=== PATIENT | male | born 1935 | race Caucasian/White ===

== ENCOUNTER → 2016-12-17 08:32 | Outpatient (CLI) | payer MEDICARE, BC ==
[2016-01-27 09:39] VITALS: BMI 31.0
[~2016-12-17 08:32] MED LIST: NIFEDIPINE ER60 MG PO; [UNRECOGNIZED DRUG - REMARK] PO
== END | disposition home or self-care (01) ==
LOC: D.MRI 08:30
DX: R19.09 Other intra-abdominal and pelvic swelling, mass and lump (principal)

== ENCOUNTER → 2018-09-01 14:31 | Outpatient (CLI) | payer MEDICARE, BC ==
[2016-01-27 09:39] VITALS: BMI 31.0
== END | disposition home or self-care (01) ==
LOC: D.NM 14:00
DX: R79.1 Abnormal coagulation profile (principal)

== ENCOUNTER → 2018-09-18 11:35 | Outpatient (CLI) | payer MEDICARE, BC ==
[2016-01-27 09:39] VITALS: BMI 31.0
== END | disposition home or self-care (01) ==
LOC: D.HCCARDIO 11:30
DX: R06.02 Shortness of breath (principal)

== ENCOUNTER 2018-11-01 11:43 | Outpatient (CLI) | payer MEDICARE, BC ==
[~2018-11-01] VITALS: Ht 181.6 cm; Wt 103.6 kg
--- NOTE | ~2018-11-01 | HEMODYNAMI ---
PATIENT:Burak WALLER MEDICAL RECORD: [id number] : 35 LOCATION:[facility] ADMISSION DATE: 11/01/18 Generatedon:11/01/201815:53 Patient name: Burak WALLER Patient #: [id number] SSN: : Date of study: 11/01/2018 Page: Of Hemodynamic Procedure Report Patient Data Patient Demographics Procedure consent was obtained First Name: Burak Gender: Male Last Name: SRIDHAR : 1935 Middle Initial: D Age: 82 year(s) Patient #: [id number] Race: Unknown Additional ID: [id number] Contact details [address]: [address] [place] [address] State: [place] City: [place] Zip code: [address] Past Medical History Allergies Allergen Reaction Date Comments Reported Sulfa drugs 11/01/2018 Admission Admission Data Admission Date: 11/01/2018 Admission Time: 11:43 Procedure Procedure Types Cath Procedure Diagnostic Procedure LHC LH w/Coronaries Sedation Charges Moderate Sedation up to 15 minutes PCI Procedure Coronary Stent Coronary Stent Initial Procedure Description Procedure Date Procedure Date: 11/01/2018 Procedure Start Time: 15:24 Procedure End Time: 15:49 Procedure Staff Name Function Luli Valentin RT Monitor Dennis Serrano MD Performing Physician Cori Flores RT Scrub Lindsey Vega RN Nurse Procedure Data Cath Procedure Fluoroscopy Diagnostic fluoroscopy Total fluoroscopy Time: 4.9 time: 4.9 min min Diagnostic fluoroscopy Total fluoroscopy dose: dose: 1077 mGy 1077 mGy Contrast Material Contrast Material Type Amount (ml) Isovue 300 79 Entry Location Entry Primary Successful Side Size Upsize Upsize Entry Closure Soto ccessful Closure Location (Fr) 1 (Fr) 2 (Fr) Remarks Device Remarks Radial Right 6 Fr Mechanical artery Short Compression Estimated blood loss: 5 ml Diagnostic catheters Device Type Used For End Catheter Placement DIAGNOSTIC Juancarlos 110cm Multi-vessel 5Fr catheter ([id number]) Angiography DIAGNOSTIC Hastings 110cm 5 Left Coronary Fr catheter (815023) Angiography Procedure Complications No complications Procedure Medications Medication Administration Route Dosage 0.9% NaCl I.V. 100 ml/hr Oxygen etCO2 Nasal cannula 2 l/min Lidocaine 2% added to field 20 Heparin Flush Bag added to field 2 bags (1000units/500ml NS) Radial Cocktail added to field 1 syringe (Verapomil 2mg/Nitro 400mcg/Heparin 1500units) Versed I.V. 2 mg Fentanyl I.V. 100 mcg Versed I.V. 2 mg Versed I.V. 2 mg Heparin Bolus I.V. 73433 units Plavix P.O. 600 mg Hemodynamics Rest Heart Rate: 65 (bpm) Pressure Samples Time Site Value (mmHg) Purpose Heart Use Rate(bpm) 15:27 LV 131/3,8 Snapshot 86 15:27 LV 142/-7,4 Pullback 93 15:27 AO 135/67(98) Pullback 93 Gradients Valve Time Site 1 Site 2 Mean SEP/DFP Peak To Heart Use (mmHg) (sec/min) Peak Rate (mmHg) (bpm) Aortic 15:27 LV AO 14 7 7 93 142/-7,4 135/67(98) Calculations Valve P-P Mean Valve Index Valve Source Name Gradient Area Flow (cm2) Aortic 7 14 7 14 Snapshots Pre Cath Intra NCS Post Cath Vital Signs Time Heart Resp SPO2 etCO2 NIBP (mmHg) Rhythm Pain Sedation Rate (ipm) (%) (mmHg) Status Level (bpm) 15:14:52 83 21 98 24.8 148/86(116) NSR 0 (11) 10(A) , No pain 15:19:21 84 21 98 23 155/86(102) NSR 0 (11) 10(A) , No pain 15:23:47 88 19 97 33 150/88(116) NSR 0 (11) 10(A) , No pain 15:28:17 87 17 98 31 126/78(101) NSR 0 (11) 10(A) , No pain 15:37:26 86 15 97 33.8 153/87(109) NSR 0 (11) 9(A) , No pain 15:41:50 86 16 98 30.1 145/79(109) NSR 0 (11) 9(A) , No pain 15:46:19 81 16 97 25.5 140/78(102) NSR 0 (11) 10(A) , No pain Medications Time Medication Route Dose Verified Delivered Reason Not es Effectiveness by by 15:11:55 0.9% NaCl I.V. 100 Dennis Lindsey used for ml/hr Zach Vega complaint analyst 15:12:02 Oxygen etCO2 2 l/min Dennis Lindsey used for Nasal Zach Vega procedure cannula RN 15:12:07 Lidocaine 2% added 20ml Dennis Dennis for local to vial Zach Serrano MD anesthetic field 15:12:12 Heparin Flush added 2 bags Dennis Dennis used for Bag to Zach Serrano MD procedure (1000units/500ml field NS) 15:12:18 Radial Cocktail added 1 Dennis Dennis used for (Verapomil to syringe Zach Serrano MD procedure 2mg/Nitro field 400mcg/Hepari 15:18:13 Versed I.V. 2 mg Dennis Lindsey for sedation Zach Vega RN 15:18:19 Fentanyl I.V. 100 mcg Dennis Lindsey for sedation Zach Vega RN 15:23:44 Versed I.V. 2 mg Dennis Lindsey for sedation Zach Vega RN 15:31:02 Versed I.V. 2 mg Dennis Lindsey for sedation Zach Vega RN 15:36:15 [place]. 88[address] Dennis Lindsey for matti ified units Zach Vega anticoagulation with Dr. ANGELES Serrano 15:52:59 Plavix P.O. 600 mg Dennis Lindsey for Zach Vega antiplatelet RN therapy Procedure Log Time Note 14:57:57 Signed procedure consent form obtained from patient. 14:57:58 Time tracking: Regular hours (M-F 7:00 - 5:00) 14:58:02 Plan of Care:Hemodynamics will remain stable., Cardiac rhythm will remain stable., Comfort level will be maintained., Respiratory function will remain adequate., Patient/ family verbilizes understanding of procedure., Procedure tolerated without complication., Recovers from procedure without complications.. 14:58:04 Diagnostic Cath status Elective 14:58:14 H&P Date Dictated: 10/25/2018 Within 30 days and on chart., H&P Addendum completed by physician on day of procedure. (MUST COMPLETE FOR ALL OUTPATIENTS). 14:58:28 Patient allergic to Sulfa drugs 15:00:59 Luli Valentin RT(R) sent for patient. Start room use. 15:04:17 Patient received from Pre/Post Procedure Room to CCL 1 Alert and oriented. Tansferred to table in Supine position. 15:04:19 Correct patient and procedure confirmed by team. 15:04:19 Warm blankets applied, and humaira hugger turned on for patient comfort. 15:04:20 ECG and BP/O2 sat monitors applied to patient. 15:11:55 0.9% NaCl 100 ml/hr I.V. was administered by Lindsey Vega RN; used for procedure; 15:12:02 Oxygen 2 l/min etCO2 Nasal cannula was administered by Lindsey Vega RN; used for procedure; 15:12:07 Lidocaine 2% 20ml vial added to field was administered by Dennis Serrano MD; for local anesthetic; 15:12:12 Heparin Flush Bag (1000units/500ml NS) 2 bags added to field was administered by Denins Serrano MD; used for procedure; 15:12:18 Radial Cocktail (Verapomil 2mg/Nitro 400mcg/Heparin 1500units) 1 syringe added to field was administered by Dennis Serrano MD; used for procedure; 15:12:24 Vital chart was started 15:16:39 Baseline sample Acquired. 15:16:43 Rhythm: sinus rhythm 15:16:45 Pre-procedure instructions explained to patient. 15:16:45 Full Disclosure recording started 15:16:46 Pre-op teaching completed and patient verbalized understanding. 15:16:47 Family in waiting room. 15:16:49 Patient NPO since Midnight. 15:16:52 Is the patient allergic to Iodine/contrast media? No. 15:16:54 Was the patient premedicated? No 15:16:55 Is patient on blood thinner?No 15:16:57 Patient diabetic? No. 15:16:59 Previous problem with sedation/anesthesia? No ? 15:17:01 Snore? Yes 15:17:02 Sleep apnea? No 15:17:03 Deviated septum? No 15:17:04 Opens mouth fully? Yes 15:17:05 Sticks out tongue? Yes 15:17:07 Airway obstruction? No ? 15:17:13 Dentures? Yes IN T6IGHT 15:17:23 Pre procedure: right dorsailis pedis pulse 2+ Normal; easily identifiable; not easily obliterated 15:17:25 Pre procedure: left dorsailis pedis pulse 2+ Normal; easily identifiable; not easily obliterated 15:17:27 Patient pain scale 0/10 ?. 15:17:35 IV patent on arrival in left forearm with 0.9% NaCl at O. 15:17:39 Lab results completed and on chart. 15:17:43 Right Radial & Right Groin area was prepped with chlora-prep and draped in sterile fashion 15:17:44 Alarms reviewed by R. N. 15:17:45 Sharps counted by scrub and verified by R.N. 15:17:46 Physician arrived 15:17:47 Final Timeout: patient, procedure, and site verified with staff and physician. All members of the team are in agreement. 15:17:47 --------ALL STOP TIME OUT------ 15:17:50 Right Radial & Right Groin site verified by team. 15:17:53 Physical assessment completed. ASA score P 2 - A patient with mild systemic disease as per Dennis Serrano MD. 15:17:59 Sedation plan: IV Moderate Sedation Medication:Versed, Fentanyl 15:18:03 Use device set Radial Dx or PCI 15:18:04 ACIST Syringe (47891) opened to sterile field. 15:18:05 Bag Decanter (2002) opened to sterile field. 15:18:05 Medline Cath Pack ([id number]) opened to sterile field. 15:18:06 ACIST Hand Control (39766) opened to sterile field. 15:18:06 DIAGNOSTIC WIRE .035 260cm J wire (252255) opened to sterile field. 15:18:07 Tegaderm 4 x 4 (1626W) opened to sterile field. 15:18:07 ACIST Manifold (64587) opened to sterile field. 15:18:08 MBrace Wrist Support (688351823) opened to sterile field. 15:18:09 SHEATH 6FR Slender (57-4935) opened to sterile field. 15:18:13 Versed 2 mg I.V. was administered by Lindsey Vega RN; for sedation; 15:18:19 Fentanyl 100 mcg I.V. was administered by Lindsey Vega RN; for sedation; 15:20:55 Procedure started. 15:23:44 Versed 2 mg I.V. was administered by Lindsey Vega RN; for sedation; 15:24:39 Local anesthetic to right radial artery with Lidocaine 2% by Dennis Serrano MD.INITIAL ACCESS ONLY 15:24:50 A 6 Fr Short sheath was inserted into the Right Radial artery 15:27:20 A DIAGNOSTIC Juancarlos 110cm 5Fr catheter (044661) was advanced over the wire and used for Multi-vessel Angiography. 15:27:28 LV hemodynamics recorded. 15:27:29 LV gram done using GIRARD 15::31 Injector settings: Ml/sec: 5, Volume: 15, 15:27:37 EF : 60 % 15:28:01 RCA angiography performed. 15:28:04 Injector settings: Ml/sec: 3, Volume: 6, 15:29:45 Catheter removed. 15:30:15 A DIAGNOSTIC Hastings 110cm 5 Fr catheter (196968) was advanced over the wire and used for Left Coronary Angiography. 15:31:02 Versed 2 mg I.V. was administered by Lindsey Vega RN; for sedation; 15:32:06 LCA angiography performed. 15:32:09 Injector settings: Ml/sec: 3, Volume: 6, 15:32:15 Catheter removed. 15:32:17 Proceeding to intervention. 15:33:03 INFLATOR Merit BasixCompak (VY1835) opened to sterile field. 15:33:04 BMW 300cm [place] 2 J wire (0123289J) opened to sterile field. 15:33:40 TUBING High Pressure Extension Tubing (Zach) (RG4649D) opened to sterile field. 15:33:42 GUIDE 6FR XBLAD 3.5 catheter (64610930) opened to sterile field. 15:34:32 6 Fr XBLAD 3.5 guide catheter was inserted over the wire 15:34:36 BMW wire advanced. 15:36:15 Heparin Bolus 31621 units I.V. was administered by Lindsey Vega RN; for anticoagulation; verified with Dr. Serrano 15:45:01 Place stent Inflation Number: 1 A ULTRA Rx 5.0 x 18 stent ([id number]) was prepped and advanced across the Prox CX. The stent was deployed at 12 CHELLE for 0:10 (min:sec). 15:47:42 Stent catheter was removed intact over wire. 15:47:43 Wire removed. 15:47:45 Guide catheter removed. 15:47:56 TR BAND Large ([id number]) opened to sterile field. 15:48:10 Sheath removed intact; hemostasis achieved with Mechanical Compression to the Right Radial artery. 15:48:12 Procedure ended.(Physican Out) 15:48:42 Fluoroscopy time 04.90 minutes. 15:48:47 Fluoroscopy dose: 1077 mGy 15:48:47 Flurop Dose total: 1077 15:48:52 Contrast amount:Isovue 300 79ml. 15:48:54 Sharps counted by scrub and verified by R.N. 15:48:57 TR band inflated with 10cc of air. 15:48:59 Insertion/operative site no bleeding no hematoma. 15:49:03 Post right radial artery:stable 15:49:04 Post Procedure Pulses reassessed and unchanged 15:49:07 Post procedure rhythm: unchanged. 15:49:10 Estimated blood loss: 5 ml 15:49:15 Patient needs reinforcement of post procedure teaching. 15:49:15 Post procedure instruction explained to patient.Patient verbalizes understanding. 15:49:32 Procedure and supply charges have been captured, reviewed, submitted and are correct. 15:49:32 Procedure type changed to Cath procedure, Diagnostic procedure, LHC, LHC w/Coronaries, Sedation Charges, Moderate Sedation up to 15 minutes, PCI procedure, Coronary Stent, Coronary Stent Initial 15:49:37 Procedure Complication : No complications 15:49:40 Vital chart was stopped 15:49:43 See physician's report for complete and final results. 15:49:53 Report given to Pre/Post Procedure Room. 15:49:55 Patient transfered to Pre/Post Procedure Room with Stretcher. 15:49:58 Full Disclosure recording stopped 15:49:58 Procedure ended. 15:50:06 ACC-PCI Only Patient was given prescriptions, or instructed by Dennis Serrano MD to start/continue the following medications upon discharge: Plavix 15:50:08 End room use (Document Last) 15:52:59 Plavix 600 mg P.O. was administered by Lindsey Vega RN; for antiplatelet therapy; Intervention Summary Intervention Notes Time ActionType Lesion and Equipment Action# Pressure Duration Attributes Used 15:45:01 Place stent Prox CX ULTRA Rx 1 12 00:10 5.0 x 18 stent ([id number]) Device Usage Item Name Manufacture Quantity Catalog Hospital Part Current Minimal Lot# / Number Charge Number Stock Stock Serial# Code ACIST Acist 1 34028 735359 668285 162224 20 Syringe Medical (96994) Systems Inc Medline Medline 1 [id number] 797298 13795 202586 5 Cath Pack ([id number]) Bag Microtek 1 2001S 393284 68049 058588 5 Decanter Medical Inc. () DIAGNOSTIC St Az 1 427764 699598 762779 925130 30 WIRE .035 260cm J wire (316428) ACIST Hand Acist 1 27243 218873 278434 020112 5 Control Medical (33912) Systems Inc ACIST Acist 1 52132 308293 563832 313856 5 Manifold Medical (04270) Systems Inc Tegaderm 4 3M 1 1626W 547934 533058 554176 5 x 4 (1626W) MBrace Advanced 1 140-0250-00 237184 93068 323346 5 Wrist Vascular Support Dynamics (283823198) SHEATH 6FR Terumo 1 [id number] 752528 256587 966978 5 Slender (80-1060) DIAGNOSTIC Terumo 1 40-5023 985578 063676 629845 5 Juancarlos 110cm 5Fr catheter (530850) DIAGNOSTIC Terumo 1 40-5013 045261 186128 266287 5 Hastings 110cm 5 Fr catheter (429659) INFLATOR Merit 1 LC5249 517874 087428 134609 15 Merit Medical BasixCompak (KC3612) BMW 300cm [place] 1 [id number] 907123 795747 788986 5 [place] 2 Vascular J wire (4681128N) TUBING High Merit 1 [id number] 006523 77880 155991 10 Pressure Medical Extension Tubing (Serrano) (UT2223S) GUIDE 6FR Cardinal 1 [id number] 689208 414003 897346 10 XBLAD 3.5 Health catheter (92925858) ULTRA Rx [place] 1 1123876-68 713372 225968 195162 5 6957126 5.0 x 18 Vascular stent ([id number]) TR BAND Terumo 1 [id number] 034614 021848 039209 40 Large ([id number]) Signature Audit [place] Stage Time Signature Unsigned Intra-Procedure 11/01/2018 Luli Valentin RT(R) 3:51:18 PM RT(R) 11/01/2018 3:52:45 PM Intra-Procedure 11/01/2018 Luli Valentin 3:53:42 PM RT(R) Signatures Monitor : Luli Valentin RT Signature : Date : Time : [facility] [address] [place] [address]
[2018-11-01] MEDS ORDERED: COZAAR100 MG PO (12:09)
[2018-11-01] MEDS ORDERED: DONEPEZIL HCL5 MG PO (12:09)
[2018-11-01] MEDS ORDERED: BAYER CHEWABLE81 MG PO (12:10)
[2018-11-01 12:25] VITALS: BP 146/70; Ht 181.6 cm; Wt 103.6 kg
[2018-11-01 12:41] LABS: BASOPHILS 0.1 % (0-2); HEMOGLOBIN 14.4 g/dL (13.5-17.5); IMMATURE GRANULOCYTES 0.1 % (0-5); LYMPHOCYTES 9.3 % (15-50); MCH 31.9 pg (26.0-34.0); MCHC 33.5 g/dL (31.0-37.0); MCV 95.1 fL (80.0-100.0); MEAN PLATELET VOLUME 11.3 fL (7.4-10.4); MONOCYTES 9.7 % (2-11); NEUTROPHILS 77.8 % (40-80); PLATELET COUNT 223 10x3/uL (130-400); RBC 4.52 10x6/uL (4.20-6.10); RDW 13.6 % (11.5-14.5); WBC 8.6 10x3/uL (4.8-10.8)
[2018-11-01 12:52] LABS: ANION GAP 13.1 mmol/L (8-16); CALCIUM 8.7 mg/dL (8.5-10.1); CARBON DIOXIDE 25.5 mmol/L (21.0-32.0); CREATININE - SERUM 1.4 mg/dL (0.6-1.3); POTASSIUM - SERUM 3.6 mmol/L (3.5-5.1)
[2018-11-01] MEDS ORDERED: PLAVIX75 MG PO (16:19)
== END 2018-11-01 20:10 ==
LOC: D.CATH 11:43
PROVIDERS: Internal Medicine Cardiovascular Disease
DX: I20.9 Angina pectoris, unspecified (principal); R94.30 Abnormal result of cardiovascular function study, unspecified; Z01.812 Encounter for preprocedural laboratory examination

== ENCOUNTER 2018-11-08 06:46 | Outpatient (CLI) | payer MEDICARE, BC ==
[~2018-11-08] VITALS: Ht 181.6 cm; Wt 102.3 kg
--- NOTE | ~2018-11-08 | HEMODYNAMI ---
PATIENT:Burak WALLER MEDICAL RECORD: [id number] : 35 LOCATION:[facility] ADMISSION DATE: 11/08/18 Generatedon:11/08/20189:47 Patient name: Burak WALLER Patient #: [id number] SSN: : Date of study: 11/08/2018 Page: Of Hemodynamic Procedure Report Patient Data Patient Demographics Procedure consent was obtained First Name: Burak Gender: Male Last Name: SRIDHAR : 1935 Middle Initial: D Age: 82 year(s) Patient #: [id number] Race: Unknown Additional ID: [id number] Contact details [address]: [address] [place] [address] State: [place] City: [place] Zip code: [address] Past Medical History Allergies Allergen Reaction Date Comments Reported Sulfa drugs 11/01/2018 Other allergy 11/08/2018 SULFA Admission Admission Data Admission Date: 11/08/2018 Admission Time: 6:46 Height (in.): 72 BSA: 2.26 (m2) Height (cm.): 182.88 BMI: 31.33 (kg/m2) Weight (lbs.): 231 Weight (kg.): 104.78 Lab Results Lab Result Date: 11/08/2018 Lab Result Time: 0:00 Biochemistry Name Units Result Min Max BUN mg/dl 16 --(---*)-- 7 18 Creatinine mg/dl 1.2 --(---*)-- 0.6 1.3 CBC Name Units Result Min Max Hemoglobin g/dl 15.5 --(-*--)-- 13.5 17.5 Procedure Procedure Types Cath Procedure PCI Procedure Coronary Stent Coronary Stent Initial Procedure Description Procedure Date Procedure Date: 11/08/2018 Procedure Start Time: 9:27 Procedure End Time: 9:47 Procedure Staff Name Function Dennis Serrano MD Performing Physician Cori Flores RT Monitor Zaira Diaz RT Scrub Kamron Uribe RN Nurse Macario Daniel RN [employer] Procedure Data Cath Procedure Fluoroscopy Diagnostic fluoroscopy Total fluoroscopy Time: 2.7 time: 2.7 min min Diagnostic fluoroscopy Total fluoroscopy dose: 610 dose: 610 mGy mGy Contrast Material Contrast Material Type Amount (ml) Isovue 300 48 Entry Location Entry Primary Successful Side Size Upsize Upsize Entry Closure Succes sful Closure Location (Fr) 1 (Fr) 2 (Fr) Remarks Device Remarks Femoral Right 6 Fr Exoseal artery Short Estimated blood loss: 10 ml Procedure Complications No complications Procedure Medications Medication Administration Route Dosage Oxygen etCO2 Nasal cannula 2 l/min Lidocaine 2% added to field 20 Heparin Flush Bag added to field 2 bags (1000units/500ml NS) 0.9% NaCl I.V. 100 ml/hr Versed I.V. 2 mg Fentanyl I.V. 50 mcg Heparin Bolus I.V. 75405 units Hemodynamics Rest BSA: 2.26 (m2) O2 Consumption: Estimated: 254.55 (ml/min) O2 Consumption indexed : Estimated:112.63 (ml/min/m) Heart Rate: 67 (bpm) Snapshots Pre Cath Intra NCS Post Cath Vital Signs Time Heart Resp SPO2 etCO2 NIBP (mmHg) Rhythm Pain Sedation Rate (ipm) (%) (mmHg) Status Level (bpm) 9:02:32 73 28 96 32 162/85(122) NSR 0 (11) 10(A) , No pain 9:06:47 80 19 96 24.4 150/88(123) NSR 0 (11) 10(A) , No pain 9:11:01 53 13 96 29.7 149/79(117) NSR 0 (11) 10(A) , No pain 9:15:18 71 25 95 31.2 123/76(107) NSR 0 (11) 10(A) , No pain 9:19:21 67 17 96 32 141/87(111) NSR 0 (11) 10(A) , No pain 9:23:31 74 18 96 30.5 129/94(120) NSR 0 (11) 10(A) , No pain 9:27:37 73 17 98 16 144/84(102) NSR 0 (11) 10(A) , No pain 9:31:49 70 17 94 36.6 147/83(95) NSR 0 (11) 10(A) , No pain 9:36:05 77 14 95 35.8 133/77(110) NSR 0 (11) 10(A) , No pain 9:40:15 84 18 96 32 116/80(96) NSR 0 (11) 10(A) , No pain 9:44:16 67 16 96 32.8 134/81(114) NSR 0 (11) 10(A) , No pain Medications Time Medication Route Dose Verified Delivered Reason Notes Effectiveness by by 9:17:31 Oxygen etCO2 2 Dennis Buffie used for Nasal l/min Zach Uribe RN procedure cannula 9:17:45 Lidocaine 2% added 20ml Dennis Dennis for local to vial Zach Serrano MD anesthetic field 9:17:51 Heparin Flush added 2 Dennis Dennis used for Bag to bags Zach Serrano MD procedure (1000units/500ml field NS) 9:18:02 0.9% NaCl I.V. 100 Dennis Buffie Per physician ml/hr Zach Uribe RN 9:26:39 Versed I.V. 2 mg Dennis Buffie for sedation Zach Uribe RN 9:26:44 Fentanyl I.V. 50 Dennis Buffie for sedation mcg Zach Uribe RN 9:32:26 Heparin Bolus I.V. 26635 Dennis Buffie for verifi ed units Zach Uribe RN anticoagulation with dr serrano. Procedure Log Time Note 8:17:39 Signed procedure consent form obtained from patient. 8:17:41 Diagnostic Cath status Elective 8:17:43 Time tracking: Regular hours (M-F 7:00 - 5:00) 8:17:46 Plan of Care:Hemodynamics will remain stable., Cardiac rhythm will remain stable., Comfort level will be maintained., Respiratory function will remain adequate., Patient/ family verbilizes understanding of procedure., Procedure tolerated without complication., Recovers from procedure without complications.. 8:24:03 Patient Height : 72 inches 8:24:09 Patient Weight : 231 lbs 8:24:32 Patient allergic to Other allergySULFA 8:48:56 Macario Daniel RN sent for patient. Start room use. 8:57:40 Patient received from Pre/Post Procedure Room to CCL 1 Alert and oriented. Tansferred to table in Supine position. 8:57:45 Warm blankets applied, and humaira hugger turned on for patient comfort. 8:57:47 Correct patient and procedure confirmed by team. 9:00:38 ECG and BP/O2 sat monitors applied to patient. 9:01:21 Vital chart was started 9:07:16 Rhythm: sinus rhythm 9:07:17 Full Disclosure recording started 9:07:25 H&P Date Dictated: 10/25/2018 Within 30 days and on chart., H&P Addendum completed by physician on day of procedure. (MUST COMPLETE FOR ALL OUTPATIENTS). 9:07:26 Pre-procedure instructions explained to patient. 9:07:27 Pre-op teaching completed and patient verbalized understanding. 9:07:28 Family in patients room. 9:07:29 Patient NPO since Midnight. 9:07:32 Is patient on blood thinner?Yes 9:07:34 ACC The patient was administered the following blood thiners within the last 24 hours: ACCPlavix 9:07:36 Patient diabetic? No. 9:07:40 Previous problem with sedation/anesthesia? No ? 9:07:40 Snore? Yes 9:07:42 Sleep apnea? No 9:07:43 Deviated septum? No 9:07:43 Opens mouth fully? Yes 9:07:46 Sticks out tongue? Yes 9:07:49 Airway obstruction? No ? 9:07:53 Dentures? Yes IN TIGHT 9:07:56 Pre procedure: right dorsailis pedis pulse 2+ Normal; easily identifiable; not easily obliterated 9:07:59 Patient pain scale 0/10 ?. 9:08:25 IV patent on arrival in left wrist with 0.9% NaCl at O. 9:08:48 Lab Result : Creatinine 1.2 mg/dl 9:08:48 Lab Result : BUN 16 mg/dl 9:08:48 Lab Result : Hemoglobin 15.5 g/dl 9:08:52 Lab results completed and on chart. 9:08:54 Right groin area was prepped with chlora-prep and draped in sterile fashion 9:08:55 Alarms reviewed by R. N. 9:08:56 Sharps counted by scrub and verified by R.N. 9:09:05 Use device set CATH PACK 9:09:06 ACIST Syringe (44664) opened to sterile field. 9:09:06 ACIST Hand Control (66489) opened to sterile field. 9:09:07 ACIST Manifold (57505) opened to sterile field. 9:09:07 Medline Cath Pack ([id number]) opened to sterile field. 9:09:07 Bag Decanter (2002S) opened to sterile field. 9:09:08 DIAGNOSTIC WIRE .035 260cm J wire (390137) opened to sterile field. 9:09:31 SHEATH 6FR [place] (CGS953) opened to sterile field. 9:09:32 BMW 300cm Straight [place] 2 wire ([id number]) opened to sterile field. 9:09:32 INFLATOR Merit BasixCompak (QT5506) opened to sterile field. 9:09:32 TUBING High Pressure Extension Tubing (Zach) ([id number]) opened to sterile field. 9:17:31 Oxygen 2 l/min etCO2 Nasal cannula was administered by Kamron Uribe RN; used for procedure; 9:17:45 Lidocaine 2% 20ml vial added to field was administered by Dennis Serrano MD; for local anesthetic; 9:17:51 Heparin Flush Bag (1000units/500ml NS) 2 bags added to field was administered by Dennis Serrano MD; used for procedure; 9:18:02 0.9% NaCl 100 ml/hr I.V. was administered by Kamron Uribe RN; Per physician; 9:19:17 GUIDE 6FR XBLAD 3.5 catheter ([id number]) opened to sterile field. 9:19:23 Zero performed for pressure channel P1 9:20:01 Baseline sample Acquired. 9:21:24 Zero performed for pressure channel P1 9:25:42 --------ALL STOP TIME OUT------ 9:25:42 Final Timeout: patient, procedure, and site verified with staff and physician. All members of the team are in agreement. 9:25:44 Right groin site verified by team. 9:25:47 Physical assessment completed. ASA score P 2 - A patient with mild systemic disease as per Dennis Serrano MD. 9:25:51 Sedation plan: IV Moderate Sedation Medication:Versed, Fentanyl 9:26:20 Procedure started. 9:26:39 Versed 2 mg I.V. was administered by Kamron Uribe RN; for sedation; 9::44 Fentanyl 50 mcg I.V. was administered by Kamron Uribe RN; for sedation; 9::48 Zero performed for pressure channel P1 9::52 Zero performed for pressure channel P1 9::19 Local anesthetic to right femoral artery with Lidocaine 2% by Dennis Serrano MD.INITIAL ACCESS ONLY 9:28:35 A 6 Fr Short sheath was inserted into the Right Femoral artery 9:29:09 6 Fr XBLAD 3.5 guide catheter was inserted over the wire 9:32:26 Heparin Bolus 25840 units I.V. was administered by Kamron Uribe RN; for anticoagulation; verified with dr serrano. 9:33:33 BMW 300 wire advanced. 9:33:35 Wire advanced across lesion. 9:36:27 Place stent Inflation Number: 1 A INTEGRITY OTW 3.5 X 15 stent ([id number]) was prepped and advanced across the Prox LAD. The stent was deployed at 13 CHELLE for 0:10 (min:sec). 9:36:57 Stent catheter was removed intact over wire. 9:36:59 Wire removed. 9:37:00 Guide catheter removed. 9:37:24 EXOSEAL 6Fr (EX600) opened to sterile field. 9:38:26 Sheath removed intact; hemostasis achieved with Exoseal to the Right Femoral artery. 9:39:03 Procedure ended.(Physican Out) 9:40:19 Fluoroscopy time 02.70 minutes. 9:40:22 Fluoroscopy dose: 610 mGy 9:40:22 Flurop Dose total: 610 9:40:27 Contrast amount:Isovue 300 48ml. 9:40:28 Sharps counted by scrub and verified by R.N. 9:40:32 Post-op/insertion site Right Femoral artery dressed using a 4 x 4 and Tegaderm. 9:40:36 Post right femoral artery:stable, soft, clean and dry 9:40:39 Post-procedure physical assessment completed. ASA score P 2 - A patient with mild systemic disease as per Dennis Serrano MD. 9:40:47 Post procedure rhythm: sinus rhythm 9:40:50 Estimated blood loss: 10 ml 9:40:51 Post procedure instruction explained to patient.Patient verbalizes understanding. 9:40:52 Patient needs reinforcement of post procedure teaching. 9:41:51 Procedure and supply charges have been captured, reviewed, submitted and are correct. 9:41:53 Procedure Complication : No complications 9:46:53 Vital chart was stopped 9:46:55 See physician's report for complete and final results. 9:46:57 Report given to Pre/Post Procedure Room. 9:46:59 Patient transfered to Pre/Post Procedure Room with Bed. 9:47:01 Procedure ended. 9:47:01 Full Disclosure recording stopped 9:47:06 End room use (Document Last) Intervention Summary Intervention Notes Time ActionType Lesion and Equipment Action# Pressure Duration Attributes Used 9:36:27 Place stent Prox LAD INTEGRITY 1 13 00:10 OTW 3.5 X 15 stent ([id number]) Device Usage Item Name Manufacture Quantity Catalog Hospital Part Current Minimal L ot# / Number Charge Number Stock Stock Serial# Code ACIST Acist 1 73182 509266 129408 315554 20 Syringe Medical (26709) Systems Inc ACIST Hand Acist 1 66496 431778 866723 612052 5 Control Medical (03973) Systems Inc ACIST Acist 1 69234 091081 258804 148316 5 Manifold Medical (17247) Systems Inc Medline Medline 1 [id number] 602993 38329 398036 5 Cath Pack ([id number]) Bag Microtek 1 2001S 531614 08362 353527 5 Decanter Medical Inc. () DIAGNOSTIC St Az 1 482525 865351 351564 654341 30 WIRE .035 260cm J wire (851664) SHEATH 6FR Terumo 1 DZM985 969942 205871 618784 40 [place] (IEM629) BMW 300cm [place] 1 1006705 162330 655545 469934 5 Straight Vascular [place] 2 wire (2528291) INFLATOR Merit 1 SC5149 718916 038533 432807 15 Merit Medical BasixCompak (QR6690) TUBING High Merit 1 [id number] 276776 88896 175627 10 Pressure Medical Extension Tubing (Serrano) ([id number]) GUIDE 6FR Cardinal 1 [id number] 718920 526765 759998 10 XBLAD 3.5 Health catheter (70744930) INTEGRITY Medtronic 1 [id number] 432680 014614 1 0 [id number] OTW 3.5 X 15 stent ([id number]) EXOSEAL 6Fr Cardinal 1 EX600 597663 902900 251453 10 (EX600) Health Signature Audit [place] Stage Time Signature Unsigned Intra-Procedure 11/08/2018 Cori Flores 9:47:26 AM RT(R) Signatures Monitor : Cori Flores Signature : RT Date : Time : [id number] [place] [address]
[~2018-11-08 06:46] MED LIST changes: +BAYER CHEWABLE81 MG PO; +COZAAR100 MG PO; +DONEPEZIL HCL5 MG PO; +PLAVIX75 MG PO
[2018-11-08 07:30] VITALS: BP 132/74; Ht 181.6 cm; Wt 102.3 kg
[2018-11-08 08:20] LABS: ANION GAP 15.4 mmol/L (8-16); CALCIUM 9.2 mg/dL (8.5-10.1); CARBON DIOXIDE 26.4 mmol/L (21.0-32.0); CREATININE - SERUM 1.2 mg/dL (0.6-1.3); POTASSIUM - SERUM 3.8 mmol/L (3.5-5.1)
[2018-11-08 08:25] LABS: BASOPHILS 0.1 % (0-2); EOSINOPHILS 1.6 % (0-7); HEMATOCRIT 46.2 % (42.0-54.0); HEMOGLOBIN 15.5 g/dL (13.5-17.5); IMMATURE GRANULOCYTES 0.1 % (0-5); LYMPHOCYTES 16.3 % (15-50); MCH 31.6 pg (26.0-34.0); MCHC 33.5 g/dL (31.0-37.0); MCV 94.3 fL (80.0-100.0); MEAN PLATELET VOLUME 10.9 fL (7.4-10.4); MONOCYTES 7.1 % (2-11); NEUTROPHILS 74.8 % (40-80); PLATELET COUNT 257 10x3/uL (130-400); RDW 13.5 % (11.5-14.5)
--- NOTE | 2018-11-08 10:17 | NUR ---
VSS. RIGHT GROIN DRESSING C/D/I. NO S/S OF HEMATOMA NOTED. RIGHT PEDAL PULSE PALPABLE. DENIES NAUSEA.
--- NOTE | 2018-11-08 10:45 | NUR ---
PT RESTING COMFORTABLY. RIGHT GROIN DRESSING C/D/I. NO S/S OF HEMATOMA NOTED. RIGHT PEDAL PULSE PALPABLE.
--- NOTE | 2018-11-08 11:15 | NUR ---
RIGHT GROIN DRESSING C/D/I. NO S/S OF INFILTRATION NOTED. VSS. PT REMINDED TO KEEP RIGHT LEG STRAIGHT AND HEAD FLAT ON PILLOW. FAMILY AT BEDSIDE. DR. VELA ROUNDED AND SPOKE WITH PT AND PT'S FAMILY.
--- NOTE | 2018-11-08 11:48 | NUR ---
PT RESTING COMFORTABLY. RIGHT GROIN DRESSING C/D/I. NO S/S OF HEMATOMA. PT IS RESTLESS. INSTRUCTED TO KEEP RIGHT LEG STRAIGHT AND HEAD FLAT ON PILLOW. FAMILY AT BEDSIDE. RIGHT PEDAL PULSE PALPABLE.
--- NOTE | 2018-11-08 12:16 | NUR ---
VSS. RIGHT GROIN DRESSING C/D/I. NO S/S OF HEMATOMA NOTED. RIGHT PEDAL PULSE PALPABLE.
--- NOTE | 2018-11-08 12:40 | NUR ---
SANDWICH AND SODA TO BEDSIDE WITH FAMILY PRESENT TO ASSIST.VSS AND PATIENT DENIED CHEST PAIN DRESSING TO R/GROIN IS CDI WITH R/FOOT WARM TO TOUCH
--- NOTE | 2018-11-08 12:53 | NUR ---
REPOSITIONED TO SITTING WITH HOB UP 30 DEGREE FOR COMFORT. DRESSING TO R/GROIN REMAINS CDI WITH CHEST PAIN DENIED.
--- NOTE | 2018-11-08 13:18 | NUR ---
LEFT ARM PIV D/C'D WITH CATH TIP INTACT. PT TOLERATED WELL. PT INSTRUCTED TO GET DRESSED. FAMILY AT BEDSIDE. RIGHT GROIN DRESSING C/D/I.
--- NOTE | 2018-11-08 13:35 | NUR ---
DISCUSSED DISCHARGE INTSTUCTIONS WITH PT AND PT'S FAMILY. THEY VOICED UNDERSTANDING. RIGHT GROIN DRESSING C/D/I. NO S/S OF HEMATOMA.
--- NOTE | 2018-11-08 13:37 | NUR ---
PT TAKEN OUT BY WHEELCHAIR. NO S/S OF DISTRESS NOTED. ALL BELONGINGS AND PAPERWORK IN HAND.
== END 2018-11-08 13:37 | disposition home or self-care (01) ==
LOC: D.CATH 06:46
PROVIDERS: Internal Medicine Cardiovascular Disease
DX: I25.119 Atherosclerotic heart disease of native coronary artery with unspecified angina pectoris (principal)